=== PATIENT | male | born 2005 | race Caucasian/White ===

== ENCOUNTER 2025-01-09 12:59 | Inpatient (IN) | payer OTHER ==
[~2025-01-09] VITALS: Ht 170.2 cm; Wt 57.3 kg
[2025-01-09 15:30] VITALS: BP 141/78; PULSE 76; RESP 17; TEMP 98.2; O2SAT 99
[2025-01-09] MEDS ORDERED: DOCUSATE SODIUM 100 MG CAPSULE PO PRN (16:30)
[2025-01-09] MEDS ORDERED: BUTALBITAL/ACETAMINOPHEN/CAFFEINE 50-325-40 MG TABLET PO PRN (16:30)
[2025-01-09] MEDS ORDERED: POLYETHYLENE GLYCOL 3350 17 GM PACKET PO PRN (16:30)
[2025-01-09] MEDS ORDERED: CARBOXYMETHYLCELLULOSE SODIUM 0.4 ML OPHTHALMIC SOLUTION [PF] OU PRN (16:30)
[2025-01-09 20:00] VITALS: BP 126/66; PULSE 71; RESP 18; TEMP 98.6; O2SAT 98
[2025-01-09] MEDS: ETHYL ALCOHOL 62% ANTISEPTIC NASAL SANITIZER 0.6 ML AMPUL NASAL SCH (20:14)
[2025-01-09] MEDS: MINOCYCLINE HCL 100 MG CAPSULE PO ONE (20:15)
[2025-01-09] MEDS: ENOXAPARIN SODIUM 40 MG/0.4 ML PF SYRINGE SQ SCH (20:16)
[2025-01-09] MEDS: -LIDODERM PATCH NOTE- MISC SCH (21:00)
[2025-01-09 21:42] VITALS: PULSE 89; RESP 18; O2SAT 96
[2025-01-10 06:56] LABS: BASOPHILS % (AUTO) 1.4 % (0.0-2.0); EOSINOPHILS % (AUTO) 7.4 % (1.0-6.0); HEMATOCRIT 34.8 % (41-53); HEMOGLOBIN 11.7 g/dL (13.5-17.5); LYMPHOCYTES # (AUTO) 1.9 K/uL (1.0-4.8); LYMPHOCYTES % (AUTO) 22.5 % (22.0-44.0); MEAN CORPUSCULAR HEMOGLOBIN 29.9 pg (26.0-34.0); MEAN CORPUSCULAR HGB CONC 33.6 G/dL (31.0-37.0); MEAN CORPUSCULAR VOLUME 89 fL (80-100); MONOCYTES # (AUTO) 0.7 K/uL (0.1-1.0); MONOCYTES % (AUTO) 8.9 % (2.0-9.0); NEUTROPHILS % (AUTO) 59.8 % (40.0-70.0); PLATELET COUNT (AUTO) 553 K/uL (150-450); WHITE BLOOD COUNT (AUTO) 8.4 K/uL (4.5-11.0)
[2025-01-10 07:04] LABS: ALANINE AMINOTRANSFERASE 60 U/L (12-78); ALBUMIN 2.9 g/dL (3.4-5.0); ALKALINE PHOSPHATASE 141 U/L (46-116); ANION GAP 7 mmol/L (8-16); ASPARTATE AMINOTRANSFERASE 37 U/L (15-37); BILIRUBIN,TOTAL 0.9 mg/dL (0.1-1.0); CALCIUM, TOTAL 9.1 mg/dL (8.8-10.5); CARBON DIOXIDE 28 mmol/L (22-29); CHLORIDE 104 mmol/L (98-107); CREATININE 0.73 mg/dL (0.60-1.30); GLOMERULAR FILTR. RATE CALC > 60 mL/min (>60); GLUCOSE,RANDOM 95 mg/dL (70-110); POTASSIUM 4.1 mmol/L (3.5-5.1); SODIUM SERUM 139 mmol/L (136-145); TOTAL PROTEIN, SERUM 7.2 g/dL (6.4-8.2); UREA NITROGEN, BLOOD 15 mg/dL (7-18)
[2025-01-10 08:00] VITALS: BP 136/84; PULSE 61; RESP 17; TEMP 97.9; O2SAT 98
[2025-01-10] MEDS: MINOCYCLINE HCL 100 MG CAPSULE PO SCH (08:21)
[2025-01-10] MEDS: levoFLOXacin 750 MG TABLET PO SCH (08:21)
[2025-01-10] MEDS: LIDOCAINE 5% TRANSDERMAL PATCH TD SCH (08:21)
[2025-01-10 20:00] VITALS: BP 127/77; PULSE 76; RESP 18; TEMP 98.4; O2SAT 99
[2025-01-10] MEDS: ACETAMINOPHEN 325 MG TABLET PO PRN (21:09)
[2025-01-10] MEDS: MELATONIN 3 MG TABLET PO PRN (22:31)
[2025-01-11 08:00] VITALS: BP 135/83; PULSE 88; RESP 18; TEMP 98.2; O2SAT 99
[2025-01-11 20:00] VITALS: BP 137/73; PULSE 73; RESP 18; TEMP 98; O2SAT 100
[2025-01-11 21:00] VITALS: O2SAT 100
[2025-01-12 08:00] VITALS: BP 128/78; PULSE 78; RESP 17; TEMP 98.1; O2SAT 100
[2025-01-12 09:00] VITALS: BP 128/78; PULSE 78; RESP 17; TEMP 98.1; O2SAT 100
[2025-01-12 11:25] VITALS: O2SAT 100
[2025-01-12 20:05] VITALS: BP 139/67; PULSE 82; RESP 18; TEMP 98.2; O2SAT 97
[2025-01-13 08:00] VITALS: BP 113/69; PULSE 59; RESP 18; TEMP 97.7; O2SAT 97
[2025-01-13 20:15] VITALS: BP 134/73; PULSE 76; RESP 18; TEMP 98.8; O2SAT 98
[2025-01-13 21:48] VITALS: O2SAT 98
[2025-01-14 08:00] VITALS: BP 124/75; PULSE 69; RESP 18; TEMP 98.4; O2SAT 100
[2025-01-14 20:00] VITALS: BP 129/73; PULSE 77; RESP 18; TEMP 98.2; O2SAT 98
[2025-01-15 06:42] LABS: BASOPHILS % (AUTO) 1.9 % (0.0-2.0); EOSINOPHILS % (AUTO) 9.7 % (1.0-6.0); HEMATOCRIT 37.3 % (41-53); HEMOGLOBIN 12.4 g/dL (13.5-17.5); LYMPHOCYTES # (AUTO) 1.6 K/uL (1.0-4.8); MEAN CORPUSCULAR HEMOGLOBIN 29.5 pg (26.0-34.0); MEAN CORPUSCULAR HGB CONC 33.3 G/dL (31.0-37.0); MEAN CORPUSCULAR VOLUME 89 fL (80-100); MONOCYTES # (AUTO) 0.6 K/uL (0.1-1.0); MONOCYTES % (AUTO) 9.2 % (2.0-9.0); NEUTROPHILS # (AUTO) 3.5 K/uL (1.8-7.7); NEUTROPHILS % (AUTO) 54.2 % (40.0-70.0); PLATELET COUNT (AUTO) 358 K/uL (150-450); RED BLOOD CELL COUNT(AUTO) 4.22 MIL/uL (4.50-5.90); RED CELL DISTRIBUTION WIDTH 14.2 % (11.5-14.5); WHITE BLOOD COUNT (AUTO) 6.5 K/uL (4.5-11.0)
[2025-01-15 07:45] LABS: PROTHROMBIN TIME 11.4 SEC (9.4-11.6)
[2025-01-15 08:00] VITALS: BP 128/78; PULSE 65; RESP 18; TEMP 98.2; O2SAT 97
[2025-01-15 20:00] VITALS: BP 142/79; PULSE 89; RESP 18; TEMP 98.4; O2SAT 99
[2025-01-16 08:00] VITALS: BP 130/84; PULSE 55; RESP 55; TEMP 98.1; O2SAT 98
[2025-01-16 20:00] VITALS: BP 137/84; PULSE 79; RESP 18; TEMP 98.6; O2SAT 98
[2025-01-16] MEDS: GABAPENTIN 300 MG CAPSULE PO SCH (21:08)
[2025-01-17 08:00] VITALS: BP 135/84; PULSE 56; RESP 19; TEMP 98.4; O2SAT 97
[2025-01-17 20:00] VITALS: BP 135/89; PULSE 77; RESP 18; TEMP 98; O2SAT 98
[2025-01-18 08:00] VITALS: BP 126/74; PULSE 54; RESP 20; TEMP 97.5; O2SAT 98
[2025-01-18 20:00] VITALS: BP 133/82; PULSE 88; RESP 18; TEMP 99; O2SAT 97
[2025-01-18 20:30] VITALS: TEMP 98.4
[2025-01-18] MEDS: GABAPENTIN 300 MG CAPSULE PO SCH (20:38)
[2025-01-19] MEDS ORDERED: LEVO750T68 PO ×2 (05:42→12:21)
[2025-01-19] MEDS ORDERED: MINO100T10 PO ×2 (05:43→12:21)
[2025-01-19] MEDS ORDERED: GABA-1181 PO ×2 (05:44→12:21)
[2025-01-19] MEDS ORDERED: LIDO-57 TP ×2 (05:44→12:21)
[2025-01-19 08:00] VITALS: BP 125/74; PULSE 76; RESP 17; TEMP 97.9; O2SAT 97
[2025-01-19] MEDS ORDERED: ASPI81TA87 PO (13:30)
== END 2025-01-19 15:15 | disposition home or self-care (01) | DRG 559 ==
LOC: 2WR 15:15
PROVIDERS: ADMIT Physical Medicine & Rehabilitation; ATTEND Physical Medicine & Rehabilitation
DX: S32.82XD Multiple fractures of pelvis without disruption of pelvic ring, subsequent encounter for fracture with routine healing (principal); K68.12 Psoas muscle abscess; K68.3 Retroperitoneal hematoma; J93.9 Pneumothorax, unspecified; E46 Unspecified protein-calorie malnutrition; Z68.1 Body mass index [BMI] 19.9 or less, adult; S37.05 Moderate laceration of kidney; S32.059D Unspecified fracture of fifth lumbar vertebra, subsequent encounter for fracture with routine healing; S32.048D Other fracture of fourth lumbar vertebra, subsequent encounter for fracture with routine healing; S32.039D Unspecified fracture of third lumbar vertebra, subsequent encounter for fracture with routine healing; S32.049D Unspecified fracture of fourth lumbar vertebra, subsequent encounter for fracture with routine healing; T22.012D Burn of unspecified degree of left forearm, subsequent encounter; S33.4XXD Traumatic rupture of symphysis pubis, subsequent encounter; D64.9 Anemia, unspecified; D75.839 Thrombocytosis, unspecified; J45.909 Unspecified asthma, uncomplicated; N43.3 Hydrocele, unspecified; N45.1 Epididymitis; Z74.09 Other reduced mobility; R04.0 Epistaxis; R09.02 Hypoxemia; R26.9 Unspecified abnormalities of gait and mobility; R40.2410 Glasgow coma scale score 13-15, unspecified time; I95.9 Hypotension, unspecified; Z91.041 Radiographic dye allergy status; S37.031D Laceration of right kidney, unspecified degree, subsequent encounter; T24.021D Burn of unspecified degree of right knee, subsequent encounter; V29.99XD Rider (driver) (passenger) of other motorcycle injured in unspecified traffic accident, subsequent encounter
CPT/HCPCS: 80053; 85025; 85610; 87081; 92523; 97110; 97163; 97167; 97530; 97535; 99366; G0238; J1650